=== PATIENT | male | born 1965 | race Caucasian/White ===

== ENCOUNTER → 2019-09-20 | Outpatient (CLI) | payer OTHER ==
[2014-11-16 20:06] VITALS: BP 135/80
[~2019-09-20] MED LIST: LEVE100020 PO; PHEN100C PO
--- NOTE | 2019-09-20 16:42 | RAD ---
LUMBAR SPINE 2-3V History: Back pain Technique: 2 views lumbar spine Comparison: None. Findings: Normal alignment. Chronic appearing anterior wedging T10, T11 and T12. No acute fracture. Multilevel lumbar degenerative disc changes most prominent L5-S1. Lower lumbar facet arthropathy most prominent L4-L5 and L5-S1. IVC filter noted with fractured wire. Bilateral iliac vascular stents noted. Impression: 1. Mild to moderate lower lumbar spondylosis. 2. IVC filter with fractured wire. Electronically signed by: Xander Rosado DO (09/20/2019 4:39 PM) [facility]
== END | disposition home or self-care (01) ==
LOC: RAD 09:12
PROVIDERS: ATTEND Surgery
DX: M51.37 Other intervertebral disc degeneration, lumbosacral region (principal); M47.816 Spondylosis without myelopathy or radiculopathy, lumbar region
CPT/HCPCS: 72100